=== PATIENT | male | born 2000 | race African-American/Black ===

== ENCOUNTER 2020-02-17 16:34 | Emergency (ER) | payer OTHER ==
[~2020-02-17] VITALS: Ht 182.9 cm; Wt 79.5 kg
[2020-02-17] MEDS ORDERED: FLUORESCEIN OPHTH 1 MG STRIP OS ONE (17:00)
[2020-02-17] MEDS ORDERED: TETRACAINE 0.5% OPHTH SOLN 4ML OS ONE (17:00)
[2020-02-17] MEDS ORDERED: CIPROFLOXACIN 0.3% OPHTH SOLN 2.5ML OS ONE (17:30)
[2020-02-17] MEDS ORDERED: CIPR0.3S OS (18:22)
[2020-02-17 18:33] VITALS: BP 120/72
== END 2020-02-17 18:34 | disposition home or self-care (01) ==
LOC: M ED 16:34
DX: T15.02XA Foreign body in cornea, left eye, initial encounter (principal); Y93.9 Activity, unspecified; Y92.9 Unspecified place or not applicable